=== PATIENT | female | born 1960 | race Caucasian/White ===

== ENCOUNTER 2017-07-23 20:02 | Emergency (ER) | payer OTHER ==
[~2017-07-23] VITALS: Ht 162.6 cm; Wt 63.5 kg
[~2017-07-23 20:02] MED LIST: TUSSIONEX PENNKI5 ML PO; ZITHROMAX500 MG PO
[2017-07-23] MEDS ORDERED: CEVIMELINE HCL30 MG (20:28)
== END 2017-07-23 22:52 | disposition home or self-care (01) ==
LOC: ER 20:02
DX: S01.02XA Laceration with foreign body of scalp, initial encounter (principal); W18.39XA Other fall on same level, initial encounter; Y93.89 Activity, other specified; Y92.091 Bathroom in other non-institutional residence as the place of occurrence of the external cause; Y99.8 Other external cause status

== ENCOUNTER 2021-04-28 09:19 | Outpatient (CLI) | payer OTHER ==
[~2021-04-28 09:19] MED LIST changes: +CEVIMELINE HCL30 MG
== END 2021-04-28 10:00 | disposition home or self-care (01) ==
LOC: MRI 09:19
PROVIDERS: ATTEND Orthopaedic Surgery
DX: M25.562 Pain in left knee (principal); M25.561 Pain in right knee
CPT/HCPCS: 73721

== ENCOUNTER 2021-10-21 08:36 | Outpatient (CLI) | payer OTHER | END 2021-10-21 08:38 | disposition home or self-care (01) | LOC: SONOGRAMA 08:36 | DX: N95.0 Postmenopausal bleeding (principal) ==